=== PATIENT | male | born 1975 | race Caucasian/White ===

== ENCOUNTER 2017-12-31 14:06 | Emergency (ER) | payer MEDICAID ==
[~2017-12-31] VITALS: Ht 182.9 cm; Wt 83.9 kg
[2017-12-31 14:15] VITALS: BP 123/71
[2017-12-31] MEDS ORDERED: cefTRIAXone SOD 1,000 MG VL IM ONE (16:00)
[2017-12-31] MEDS ORDERED: traMADol HCL 50 MG TAB PO ONE (16:00)
== END 2017-12-31 16:21 | disposition home or self-care (01) ==
LOC: ER 14:06
DX: K08.89 Other specified disorders of teeth and supporting structures (principal); J30.9 Allergic rhinitis, unspecified; F17.210 Nicotine dependence, cigarettes, uncomplicated; F12.10 Cannabis abuse, uncomplicated
CPT/HCPCS: 96372; 99283; J0696

== ENCOUNTER 2018-01-05 13:45 | Emergency (ER) | payer OTHER, MEDICAID ==
[~2018-01-05] VITALS: Ht 180.3 cm; Wt 83.9 kg
[2018-01-05 14:45] VITALS: BP 11/69
[2018-01-05] MEDS ORDERED: diphenhdrAMINE HCL 25 MG CAP PO ONE (15:00)
[2018-01-05] MEDS ORDERED: methylPREDNISolone SOD SUCC 125 MG/2 ML VL IM ONE (15:00)
== END 2018-01-05 15:24 | disposition home or self-care (01) ==
LOC: ER 13:45
DX: L03.317 Cellulitis of buttock (principal); K08.89 Other specified disorders of teeth and supporting structures; F17.210 Nicotine dependence, cigarettes, uncomplicated; F12.10 Cannabis abuse, uncomplicated
CPT/HCPCS: 96372; 99283; J2930

== ENCOUNTER 2019-01-02 20:34 | Emergency (ER) | payer MEDICAID, MEDICARE, OTHER ==
[~2019-01-02] VITALS: Ht 180.3 cm; Wt 81.6 kg
[2019-01-02 20:45] VITALS: BP 138/86
[2019-01-02 22:46] LABS: Amphetamine Screen, Urine POSITIVE (NEGATIVE); Barbiturate Scree,Urine NEGATIVE (NEGATIVE); Benzodiazephine Screen, Urine NEGATIVE (NEGATIVE); Cannabinoid Screen, Urine POSITIVE (NEGATIVE); Cocaine Screen, Urine NEGATIVE (NEGATIVE); Opiate Scree,Urine NEGATIVE (NEGATIVE); Phencyclidine Screen, Urine NEGATIVE (NEGATIVE)
== END 2019-01-03 03:50 | disposition left against medical advice (07) ==
LOC: EDBD 20:34 → ER 20:39
DX: F41.9 Anxiety disorder, unspecified (principal); Z53.21 Procedure and treatment not carried out due to patient leaving prior to being seen by health care provider
CPT/HCPCS: 80307

== ENCOUNTER 2020-09-26 17:48 | Emergency (ER) | payer MEDICARE ==
[~2020-09-26] VITALS: Ht 180.3 cm; Wt 102.1 kg
[2020-09-26 23:18] VITALS: BP 128/78
== END 2020-09-26 23:18 | disposition home or self-care (01) ==
LOC: ER 17:48
DX: U07.1 COVID-19 (principal); J12.89 Other viral pneumonia; F17.210 Nicotine dependence, cigarettes, uncomplicated
CPT/HCPCS: 36415; 71045; 87426

== ENCOUNTER 2021-07-18 05:38 | Emergency (ER) | payer MEDICARE ==
[~2021-07-18] VITALS: Ht 182.9 cm; Wt 106.6 kg
[2021-07-18] MEDS ORDERED: IPRATROPIUM BROM 0.5 MG/2.5ML INH SOL NEB ONE (07:45)
[2021-07-18] MEDS ORDERED: methylPREDNISolone SOD SUCC 125 MG/2 ML VL IM ONE (07:45)
[2021-07-18 07:48] VITALS: BP 125/92
== END 2021-07-18 08:16 | disposition home or self-care (01) ==
LOC: ER 05:38
DX: J45.909 Unspecified asthma, uncomplicated (principal); F17.210 Nicotine dependence, cigarettes, uncomplicated; F12.10 Cannabis abuse, uncomplicated
CPT/HCPCS: 71045; 94640; 96372; 99283; J2930; J7644

== ENCOUNTER 2023-09-10 13:16 | Emergency (ER) | payer MEDICAID, MEDICARE, OTHER ==
[~2023-09-10] VITALS: Ht 180.3 cm; Wt 108.5 kg
[2023-09-10 14:24] LABS: Basophils # (auto) 0.1 10 ^3/uL (0-0.2); Eosinophils # (auto) 0.2 10 ^3/uL (0-0.8); Hematocrit 38.7 % (41.0-53.0); Hemoglobin 13.1 g/dL (13.5-17.5); Lymphocytes # (auto) 1.8 10 ^3/uL (0.4-5.4); Mean Corpuscular Volume 105.3 fL (80.0-100.0); Monocytes # (auto) 0.8 10 ^3/uL (0-1.3); Red Cell Distribution Width 13.4 % (11.8-14.3); White Blood Cell 5.9 10^3/uL (4.4-10.8)
[2023-09-10 14:26] LABS: Eosinophils % (auto) 2.7 % (0.0-7.0); Lymphocytes % (auto) 29.6 % (10.0-50.0); Mean Corpuscular Hemoglobin 35.6 pg (28.0-32.0); Mean Corpuscular Hgb Conc. 33.8 g/dL (32.0-36.0); Monocytes % (auto) 13.6 % (0.0-12.0); Neutrophils # (auto) 3.1 10 ^3/uL (1.6-8.6); Neutrophils % (auto) 53.1 % (37.0-80.0); Nucleated Red Blood Cells % 0.1 %; Red Blood Cells 3.68 10^6/uL (4.5-5.90)
[2023-09-10 14:41] LABS: Alanine Aminotransferase 170 U/L (7-40); Albumin 3.7 g/dL (3.2-4.8); Alkaline Phosphatase 85 U/L (46-116); Anion Gap 7 (5-15); Aspartate Aminotransferase 228 U/L (13-40); BUN/Creatinine Ratio 9.1 (10.0-20.0); Bilirubin, Total 1.8 mg/dL (0.2-1.0); Blood Urea Nitrogen 6 mg/dL (9-23); Calcium 9.1 mg/dL (8.5-10.1); Carbon Dioxide 23 mmol/L (20-30); Chloride 107 mmol/L (98-107); Glucose 100 mg/dL (74-106); Potassium 4.2 mmol/L (3.5-5.1); Sodium 137 mmol/L (136-145); Total Protein 7.8 g/dL (5.7-8.2)
[2023-09-10 14:44] LABS: INR 1.3 (0.9-1.15); Prothrombin Time 13.4 sec (9.3-11.8)
[2023-09-10] MEDS ORDERED: ONDANSETRON HCL 4 MG/2 ML VIAL IV ONE (15:15)
[2023-09-10] MEDS ORDERED: ZOFR4T PO (15:38)
[2023-09-10 17:03] VITALS: BP 125/76; PULSE 74; RESP 19; TEMP 98.4; O2SAT 98
== END 2023-09-10 17:13 | disposition home or self-care (01) ==
LOC: ER 13:16
DX: R04.0 Epistaxis (principal); J45.909 Unspecified asthma, uncomplicated; F17.210 Nicotine dependence, cigarettes, uncomplicated; F12.10 Cannabis abuse, uncomplicated
CPT/HCPCS: 30300; 36415; 80053; 85025; 85610; 85730

== ENCOUNTER 2023-09-11 17:19 | Emergency (ER) | payer OTHER ==
[~2023-09-11] VITALS: Ht 180.3 cm; Wt 107.1 kg
[~2023-09-11 17:19] MED LIST: ZOFR4T PO
[2023-09-11 19:04] VITALS: BP 136/86; PULSE 95; RESP 16; TEMP 98.2; O2SAT 98
[2023-09-11] MEDS ORDERED: KETOROLAC TROMETH 30 MG/ML 1ML VIAL IM ONE (19:30)
[2023-09-11] MEDS ORDERED: KETOROLAC TROMETH 30 MG/ML 1ML VIAL ONE (19:42)
== END 2023-09-11 21:06 | disposition home or self-care (01) ==
LOC: ER 17:19
DX: R51.9 Headache, unspecified (principal); J45.909 Unspecified asthma, uncomplicated; F17.210 Nicotine dependence, cigarettes, uncomplicated; F12.10 Cannabis abuse, uncomplicated; Z48.02 Encounter for removal of sutures; Z88.1 Allergy status to other antibiotic agents
CPT/HCPCS: 96372; 99283; J1885

== ENCOUNTER 2023-10-20 09:27 | Emergency (ER) | payer OTHER ==
[~2023-10-20] VITALS: Ht 182.9 cm; Wt 113.6 kg
[2023-10-20] MEDS ORDERED: PANTOPRAZOLE 40 MG/10 ML VIAL INJ IV ONE (09:45)
[2023-10-20] MEDS ORDERED: PROCHLORPERAZINE EDISYLATE 5 MG/ML 2ML VIAL IV ONE (09:45)
[2023-10-20] MEDS ORDERED: SODIUM CHLORIDE 0.9% 1,000 ML IVB ONE (09:45)
[2023-10-20] MEDS ORDERED: MORPHINE SULFATE 4 MG/ML SYR/VIAL IV ONE (09:45)
[2023-10-20 10:17] VITALS: PULSE 116; RESP 19; O2SAT 98
[2023-10-20 10:19] LABS: Basophils # (auto) 0 10 ^3/uL (0-0.2); Basophils % (auto) 0.3 % (0.0-2.0); Eosinophils # (auto) 0 10 ^3/uL (0-0.8); Hemoglobin 8.8 g/dL (13.5-17.5); Lymphocytes # (auto) 2.4 10 ^3/uL (0.4-5.4)
[2023-10-20 10:23] LABS: Lymphocytes % (auto) 15.3 % (10.0-50.0); Mean Corpuscular Hemoglobin 35.5 pg (28.0-32.0); Mean Corpuscular Volume 104.4 fL (80.0-100.0); Monocytes # (auto) 1.2 10 ^3/uL (0-1.3); Monocytes % (auto) 7.9 % (0.0-12.0); Neutrophils % (auto) 76.5 % (37.0-80.0); Red Blood Cells 2.49 10^6/uL (4.5-5.90); Red Cell Distribution Width 14.2 % (11.8-14.3); White Blood Cell 15.6 10^3/uL (4.4-10.8)
[2023-10-20 10:44] LABS: Alanine Aminotransferase 109 U/L (7-40); Albumin 3.4 g/dL (3.2-4.8); Alkaline Phosphatase 50 U/L (46-116); Anion Gap 10 (5-15); Aspartate Aminotransferase 211 U/L (13-40); BUN/Creatinine Ratio 36.9 (10.0-20.0); Blood Urea Nitrogen 38 mg/dL (9-23); Calcium 9.2 mg/dL (8.5-10.1); Carbon Dioxide 29 mmol/L (20-30); Chloride 97 mmol/L (98-107); Glucose 142 mg/dL (74-106); Potassium 3.2 mmol/L (3.5-5.1); Sodium 136 mmol/L (136-145)
[2023-10-20 10:45] LABS: Bilirubin, Total 2.8 mg/dL (0.2-1.0); Total Protein 6.8 g/dL (5.7-8.2)
[2023-10-20 11:09] LABS: Urine Epithelial Cast None Seen /hpf (<5)
[2023-10-20 11:22] LABS: Urine Bacteria NONE SEEN /hpf (None Seen); Urine Blood Negative /uL (Negative); Urine Clarity Clear (Clear); Urine Color Yellow (Yellow); Urine Hyaline Cast FEW /lpf (0 - 2); Urine Mucus FEW (None Seen); Urine Protein, UAD TRACE (Negative); Urine Specific Gravity 1.024 (1.001-1.035); Urine Urobilinogen Normal (Negative); Urine WBC 1 /hpf (0 - 3); Urine pH 5.5 (5.0-8.0)
[2023-10-20 11:39] LABS: Amphetamine Screen, Urine Neg (NEGATIVE); Barbiturate Scree,Urine Neg (NEGATIVE); Benzodiazephine Screen, Urine Neg (NEGATIVE); Cannabinoid Screen, Urine Pos (NEGATIVE); Cocaine Screen, Urine Neg (NEGATIVE); Opiate Scree,Urine Pos (NEGATIVE); Phencyclidine Screen, Urine Neg (NEGATIVE)
[2023-10-20 13:30] LABS: Lipase 68 U/L (12-53)
[2023-10-20] MEDS ORDERED: POTASSIUM CHL 20MEQ/100ML 100 ML IV ONE (14:00)
[2023-10-20 16:06] VITALS: BP 109/70; PULSE 117; RESP 17; TEMP 98.5; O2SAT 96
== END 2023-10-20 12:04 | disposition short-term general hospital (02) ==
LOC: EDBD 09:27 → ER 09:27
DX: E86.0 Dehydration (principal); D64.89 Other specified anemias; E87.6 Hypokalemia; R11.2 Nausea with vomiting, unspecified; J45.909 Unspecified asthma, uncomplicated; F17.210 Nicotine dependence, cigarettes, uncomplicated; Z90.89 Acquired absence of other organs; Z79.899 Other long term (current) drug therapy; Z88.8 Allergy status to other drugs, medicaments and biological substances
CPT/HCPCS: 36415; 74176; 80053; 80307; 81001; 83690; 85025; 96361; 96365; 96366; 96375; 99285; C9113; J0780; J2270; J3480; J7030

== ENCOUNTER 2023-10-25 14:18 | Emergency (ER) | payer OTHER ==
[~2023-10-25] VITALS: Ht 182.9 cm; Wt 100.0 kg
[2023-10-25 15:20] LABS: Hematocrit 28.4 % (41.0-53.0); Hemoglobin 9.2 g/dL (13.5-17.5); Mean Corpuscular Hemoglobin 30.6 pg (28.0-32.0); Mean Corpuscular Hgb Conc. 32.3 g/dL (32.0-36.0); Mean Corpuscular Volume 94.8 fL (80.0-100.0); Red Cell Distribution Width 20.4 % (11.8-14.3); White Blood Cell 13.5 10^3/uL (4.4-10.8)
[2023-10-25 15:24] LABS: Band Neutrophils % (manual) 0; Basophils % (manual) 0 (0.0-2.0); Blast Cells 0; Metamyelocytes % 0; Myelocytes % 0; Promyelocytes % 0; Reactive Lymphocytes 0
[2023-10-25 15:26] LABS: Chloride 102 mmol/L (98-107); Potassium 3.6 mmol/L (3.5-5.1); Sodium 132 mmol/L (136-145)
[2023-10-25 15:27] LABS: Anion Gap 5 (5-15); Calcium 7.5 mg/dL (8.5-10.1); Carbon Dioxide 25 mmol/L (20-30)
[2023-10-25 15:32] LABS: BUN/Creatinine Ratio 18.1 (10.0-20.0); Blood Urea Nitrogen 15 mg/dL (9-23); Glucose 116 mg/dL (74-106)
[2023-10-25 16:17] LABS: Eosinophils % (manual) 2 (0-7); Lymphocytes % (manual) 10 (10.0-50.0); Monocytes % (manual) 16 (0-12); Platelet Estimate Adequate
[2023-10-25] MEDS ORDERED: chlordiazePOXIDE HCL 25 MG CAP PO ONE (17:00)
[2023-10-25 17:43] VITALS: PULSE 106; RESP 16; O2SAT 96
[2023-10-25 17:48] LABS: Alanine Aminotransferase 107 U/L (7-40); Albumin 2.9 g/dL (3.2-4.8); Alkaline Phosphatase 113 U/L (46-116); Anion Gap 5 (5-15); Aspartate Aminotransferase 186 U/L (13-40); BUN/Creatinine Ratio 19.5 (10.0-20.0); Bilirubin, Total 4.6 mg/dL (0.2-1.0); Blood Alcohol < 3.0 mg/dL (<10); Blood Urea Nitrogen 15 mg/dL (9-23); Calcium 7.5 mg/dL (8.5-10.1); Carbon Dioxide 24 mmol/L (20-30); Chloride 102 mmol/L (98-107); Glucose 115 mg/dL (74-106); Potassium 3.5 mmol/L (3.5-5.1); Sodium 131 mmol/L (136-145)
[2023-10-25 17:49] LABS: Total Protein 5.6 g/dL (5.7-8.2)
[2023-10-25 19:30] VITALS: PULSE 90; RESP 20; O2SAT 99
[2023-10-25] MEDS ORDERED: ONDANSETRON HCL 4 MG/2 ML VIAL IV ONE (20:00)
[2023-10-25] MEDS ORDERED: MORPHINE SULFATE 4 MG/ML SYR/VIAL IV ONE (20:00)
[2023-10-25] MEDS ORDERED: ALBUMIN 5% 250 ML IV ONE (22:00)
[2023-10-25] MEDS ORDERED: LORazepam 2MG/ML-1ML VIAL IM ONE (22:00)
[2023-10-25 22:22] LABS: INR 1.45 (0.9-1.15); Prothrombin Time 14.9 sec (9.3-11.8)
[2023-10-26 01:17] VITALS: BP 134/65; PULSE 92; RESP 12; TEMP 98.9; O2SAT 94
== END 2023-10-26 21:54 | disposition short-term general hospital (02) ==
LOC: ER 14:18
DX: F10.139 Alcohol abuse with withdrawal, unspecified (principal); J45.909 Unspecified asthma, uncomplicated; F17.210 Nicotine dependence, cigarettes, uncomplicated; Z90.89 Acquired absence of other organs; Z79.899 Other long term (current) drug therapy; Z88.8 Allergy status to other drugs, medicaments and biological substances; Y90.0 Blood alcohol level of less than 20 mg/100 ml
CPT/HCPCS: 36415; 74176; 80048; 80053; 80320; 85007; 85027; 85610; 93005; 96365; 96366; 96375; 99285; J2060; J2270; J2405; P9045

== ENCOUNTER 2023-11-07 07:53 | Inpatient (IN) | payer OTHER ==
[~2023-11-07] VITALS: Ht 180.3 cm; Wt 73.5 kg
[2023-11-07 08:14] VITALS: PULSE 106; RESP 19; O2SAT 97
[2023-11-07 08:49] LABS: Basophils # (auto) 0 10 ^3/uL (0-0.2); Eosinophils # (auto) 0.3 10 ^3/uL (0-0.8); Hematocrit 24.5 % (41.0-53.0); Hemoglobin 7.8 g/dL (13.5-17.5); Mean Corpuscular Hgb Conc. 31.9 g/dL (32.0-36.0); Neutrophils # (auto) 3.3 10 ^3/uL (1.6-8.6); Red Blood Cells 2.68 10^6/uL (4.5-5.90)
[2023-11-07 08:51] LABS: Basophils % (auto) 0.4 % (0.0-2.0); Eosinophils % (auto) 5.6 % (0.0-7.0); Lymphocytes # (auto) 1.7 10 ^3/uL (0.4-5.4); Mean Corpuscular Hemoglobin 29.2 pg (28.0-32.0); Mean Corpuscular Volume 91.4 fL (80.0-100.0); Monocytes # (auto) 0.7 10 ^3/uL (0-1.3); Monocytes % (auto) 12.1 % (0.0-12.0); Neutrophils % (auto) 53.9 % (37.0-80.0); Nucleated Red Blood Cells % 0.1 %; Red Cell Distribution Width 19.4 % (11.8-14.3); White Blood Cell 6.1 10^3/uL (4.4-10.8)
[2023-11-07 09:01] LABS: Alanine Aminotransferase 66 U/L (7-40); Albumin 2.7 g/dL (3.2-4.8); Alkaline Phosphatase 81 U/L (46-116); Anion Gap 5 (5-15); Aspartate Aminotransferase 120 U/L (13-40); Bilirubin, Total 2.6 mg/dL (0.2-1.0); Calcium 8.1 mg/dL (8.5-10.1); Carbon Dioxide 25 mmol/L (20-30); Chloride 105 mmol/L (98-107); Glucose 102 mg/dL (74-106); Potassium 3.6 mmol/L (3.5-5.1); Sodium 135 mmol/L (136-145); Total Protein 6.8 g/dL (5.7-8.2)
[2023-11-07 09:05] LABS: BUN/Creatinine Ratio 5.8 (10.0-20.0); Blood Urea Nitrogen < 5 mg/dL (9-23)
[2023-11-07] MEDS: FUROSEMIDE 40 MG/4 ML VIAL IV ONE (09:21)
[2023-11-07] MEDS: cefTRIAXone 1GM/50ML D5W 50 ML IV ONE (09:33)
[2023-11-07] MEDS: ONDANSETRON HCL 4 MG/2 ML VIAL IV ONE (09:34)
[2023-11-07] MEDS: MORPHINE SULFATE INJ 2 MG/ml SYRG IV ONE (09:34)
[2023-11-07 10:14] LABS: Lactic Acid w/Reflex 2.3 mmol/L (0.4-2.0)
[2023-11-07 10:21] LABS: Urine Bacteria NONE SEEN /hpf (None Seen); Urine Blood Negative /uL (Negative); Urine Clarity Clear (Clear); Urine Color Yellow (Yellow); Urine Protein, UAD Negative (Negative); Urine Specific Gravity 1.007 (1.001-1.035); Urine Urobilinogen Normal (Negative); Urine WBC 1 /hpf (0 - 3); Urine pH 6.5 (5.0-8.0)
[2023-11-07 10:30] LABS: Amphetamine Screen, Urine Neg (NEGATIVE); Barbiturate Scree,Urine Neg (NEGATIVE); Benzodiazephine Screen, Urine Pos (NEGATIVE); Cannabinoid Screen, Urine Pos (NEGATIVE); Cocaine Screen, Urine Neg (NEGATIVE); Opiate Scree,Urine Neg (NEGATIVE); Phencyclidine Screen, Urine Neg (NEGATIVE)
[2023-11-07] MEDS: CLINDAMYCIN 900MG IV 50 ML IV ONE (10:46)
[2023-11-07 12:31] LABS: Triglycerides 80 mg/dL (< 150)
[2023-11-07 12:32] LABS: LDL Cholesterol 52 mg/dL (< 100)
[2023-11-07 12:33] LABS: Cholesterol 87 mg/dL (< 200); HDL Cholesterol 14 mg/dL (40-59)
[2023-11-07 13:03] VITALS: BP 107/57; PULSE 111; RESP 19; TEMP 98.6; O2SAT 94
[2023-11-07 13:18] LABS: Erythrocyte Sedimentation Rate 63 mm/hr (0-20)
[2023-11-07] MEDS: CLINDAMYCIN 900MG IV 50 ML IV SCH (14:00)
[2023-11-07] MEDS: NICOTINE 14 MG/24HR TOPICAL PATCH TD SCH (16:26)
[2023-11-07 17:47] VITALS: PULSE 110; RESP 18; O2SAT 97
[2023-11-07 19:45] VITALS: O2SAT 96
[2023-11-07] MEDS: ACETAMINOPHEN 325 MG TAB PO PRN (20:24)
[2023-11-07 22:00] VITALS: BP 115/70; PULSE 116; RESP 19; TEMP 98.3; O2SAT 95
[2023-11-08] VITALS (9 sets, daily range): BP systolic 96–129; BP diastolic 55–71; PULSE 101–106; RESP 16–20; TEMP 98.2–98.7; O2SAT 94–97
[2023-11-08 05:56] LABS: Basophils # (auto) 0.1 10 ^3/uL (0-0.2); Eosinophils # (auto) 0.4 10 ^3/uL (0-0.8); Nucleated Red Blood Cells % 0.1 %
[2023-11-08 05:58] LABS: Basophils % (auto) 1.8 % (0.0-2.0); Eosinophils % (auto) 5.4 % (0.0-7.0); Hematocrit 23.6 % (41.0-53.0); Hemoglobin 7.6 g/dL (13.5-17.5); Lymphocytes # (auto) 1.9 10 ^3/uL (0.4-5.4); Lymphocytes % (auto) 29.5 % (10.0-50.0); Mean Corpuscular Hemoglobin 29.5 pg (28.0-32.0); Mean Corpuscular Hgb Conc. 32.2 g/dL (32.0-36.0); Mean Corpuscular Volume 91.4 fL (80.0-100.0); Monocytes # (auto) 0.7 10 ^3/uL (0-1.3); Monocytes % (auto) 10.5 % (0.0-12.0); Neutrophils # (auto) 3.4 10 ^3/uL (1.6-8.6); Neutrophils % (auto) 52.8 % (37.0-80.0); Red Blood Cells 2.59 10^6/uL (4.5-5.90); Red Cell Distribution Width 19.8 % (11.8-14.3); White Blood Cell 6.5 10^3/uL (4.4-10.8)
[2023-11-08 06:02] LABS: Alanine Aminotransferase 53 U/L (7-40); Albumin 2.6 g/dL (3.2-4.8); Alkaline Phosphatase 75 U/L (46-116); Anion Gap 6 (5-15); Aspartate Aminotransferase 109 U/L (13-40); BUN/Creatinine Ratio 7.3 (10.0-20.0); Blood Urea Nitrogen 7 mg/dL (9-23); Calcium 7.9 mg/dL (8.7-10.4); Carbon Dioxide 26 mmol/L (20-30); Chloride 105 mmol/L (98-107); Glucose 102 mg/dL (74-106); Potassium 3.6 mmol/L (3.5-5.1); Sodium 137 mmol/L (136-145)
[2023-11-08 06:03] LABS: Bilirubin, Total 1.9 mg/dL (0.2-1.0); Total Protein 6.7 g/dL (5.7-8.2)
[2023-11-08] MEDS: cefTRIAXone 1GM/50ML D5W 50 ML IV SCH (08:40)
[2023-11-08] MEDS ORDERED: NICOTINE 14 MG/24HR TOPICAL PATCH TD SCH (10:00)
[2023-11-08] MEDS: FUROSEMIDE 20 MG/2 ML VIAL IV SCH (10:43)
[2023-11-08] MEDS: ENOXAPARIN SOD 40 MG/0.4 ML SYRINGE SC SCH (10:43)
[2023-11-08] MEDS: FOLIC ACID 1 MG, MULTIPLE VITAMIN 10 ML, MAGNESIUM SULF SDV 50% 8 MEQ, THIAMINE INJ 100... INJ SCH (18:00)
[2023-11-09] VITALS (12 sets, daily range): BP systolic 90–111; BP diastolic 50–70; PULSE 96–110; RESP 16–20; TEMP 98.2–99.4; O2SAT 94–100
[2023-11-09 06:01] LABS: Basophils # (auto) 0.1 10 ^3/uL (0-0.2); Eosinophils # (auto) 0.3 10 ^3/uL (0-0.8); Lymphocytes # (auto) 1.6 10 ^3/uL (0.4-5.4); Monocytes # (auto) 0.6 10 ^3/uL (0-1.3); Neutrophils # (auto) 2.3 10 ^3/uL (1.6-8.6)
[2023-11-09 06:03] LABS: Basophils % (auto) 1.9 % (0.0-2.0); Eosinophils % (auto) 5.6 % (0.0-7.0); Hematocrit 21.4 % (41.0-53.0); Lymphocytes % (auto) 32.4 % (10.0-50.0); Mean Corpuscular Hemoglobin 29.5 pg (28.0-32.0); Mean Corpuscular Hgb Conc. 32.4 g/dL (32.0-36.0); Neutrophils % (auto) 47.1 % (37.0-80.0); Red Blood Cells 2.35 10^6/uL (4.5-5.90); Red Cell Distribution Width 19.3 % (11.8-14.3); White Blood Cell 4.8 10^3/uL (4.4-10.8)
[2023-11-09 06:07] LABS: Anion Gap 6 (5-15); Carbon Dioxide 26 mmol/L (20-30); Chloride 106 mmol/L (98-107); Potassium 3.1 mmol/L (3.5-5.1); Sodium 138 mmol/L (136-145)
[2023-11-09 06:08] LABS: Calcium 7.6 mg/dL (8.7-10.4)
[2023-11-09 06:13] LABS: BUN/Creatinine Ratio 9.5 (10.0-20.0); Blood Urea Nitrogen 8 mg/dL (9-23); Glucose 98 mg/dL (74-106)
[2023-11-09 07:08] LABS: Hemoglobin 6.9 g/dL (13.5-17.5)
[2023-11-09 09:16] LABS: Hepatitis B Surface Antigen Negative (Negative)
[2023-11-09 09:51] LABS: Hepatitis C Antibody Positive (Negative)
[2023-11-09] MEDS ORDERED: FURO40TA4 PO (14:09)
[2023-11-09] MEDS ORDERED: POTA10TA51 PO (14:09)
[2023-11-09] MEDS ORDERED: ALBU108A5 INH (14:09)
[2023-11-09] MEDS ORDERED: PANT40TA2 PO (14:09)
[2023-11-09] MEDS ORDERED: POTA-220 PO (14:09)
[2023-11-09] MEDS: ALBUTEROL SULF 2.5 MG/0.5ML(0.5%) NEB SOLN NEB PRN (14:45)
[2023-11-09] MEDS: FAMOTIDINE (10MG/ML) 2ML VL IV ONE (23:18)
[2023-11-10 05:11] VITALS: BP 105/58; PULSE 96; RESP 17; TEMP 98; O2SAT 94
[2023-11-10 09:14] VITALS: BP 100/65; PULSE 81; RESP 14; TEMP 98.3; O2SAT 93
[2023-11-10 10:42] VITALS: BP 100/65; PULSE 81; RESP 14; O2SAT 93
[2023-11-10 10:48] VITALS: O2SAT 93
[2023-11-10 10:53] LABS: Basophils # (auto) 0.1 10 ^3/uL (0-0.2); Basophils % (auto) 1.5 % (0.0-2.0); Eosinophils # (auto) 0.5 10 ^3/uL (0-0.8); Hematocrit 26.4 % (41.0-53.0); Hemoglobin 8.6 g/dL (13.5-17.5); Lymphocytes # (auto) 1.7 10 ^3/uL (0.4-5.4); Lymphocytes % (auto) 33.4 % (10.0-50.0); Mean Corpuscular Hemoglobin 29.3 pg (28.0-32.0); Mean Corpuscular Hgb Conc. 32.5 g/dL (32.0-36.0); Mean Corpuscular Volume 90.2 fL (80.0-100.0); Monocytes # (auto) 0.7 10 ^3/uL (0-1.3); Monocytes % (auto) 13.5 % (0.0-12.0); Neutrophils # (auto) 2.2 10 ^3/uL (1.6-8.6); Neutrophils % (auto) 42.6 % (37.0-80.0); Nucleated Red Blood Cells % 0.1 %; Red Blood Cells 2.92 10^6/uL (4.5-5.90); Red Cell Distribution Width 19.2 % (11.8-14.3); White Blood Cell 5.1 10^3/uL (4.4-10.8)
[2023-11-10 11:16] LABS: Alanine Aminotransferase 45 U/L (7-40); Albumin 2.5 g/dL (3.2-4.8); Alkaline Phosphatase 64 U/L (46-116); Anion Gap 4 (5-15); Aspartate Aminotransferase 89 U/L (13-40); BUN/Creatinine Ratio 9.4 (10.0-20.0); Bilirubin, Total 2.1 mg/dL (0.2-1.0); Blood Urea Nitrogen 8 mg/dL (9-23); Calcium 7.8 mg/dL (8.5-10.1); Carbon Dioxide 29 mmol/L (20-30); Chloride 105 mmol/L (98-107); Glucose 101 mg/dL (74-106); Sodium 138 mmol/L (136-145); Total Protein 6.2 g/dL (5.7-8.2)
[2023-11-10 12:34] VITALS: BP 93/51; PULSE 90; RESP 16; TEMP 98.8; O2SAT 92
[2023-11-10] MEDS: PANTOPRAZOLE 40 MG/10 ML VIAL INJ IV SCH (13:11)
[2023-11-10 14:01] LABS: COVID19 ANTIGEN SOFIA FIA NEGATIVE (NEGATIVE)
[2023-11-10 16:30] VITALS: BP 98/56; PULSE 91; RESP 16; TEMP 99; O2SAT 95
== END 2023-11-10 18:20 | disposition short-term general hospital (02) | DRG 602 ==
LOC: ER 07:53 → OVERFLOW 11:34 → CENTRAL 17:43
PROVIDERS: ADMIT Nurse Practitioner Family; ATTEND Family Medicine
PROC: 30233N1 Transfusion of Nonautologous Red Blood Cells into Peripheral Vein, Percutaneous Approach (ICD-10-PCS; principal; 2023-11-09)
DX: L03.115 Cellulitis of right lower limb (principal); I50.33 Acute on chronic diastolic (congestive) heart failure; R18.8 Other ascites; I85.00 Esophageal varices without bleeding; L03.116 Cellulitis of left lower limb; R04.0 Epistaxis; E66.01 Morbid (severe) obesity due to excess calories; F10.10 Alcohol abuse, uncomplicated; R74.01 Elevation of levels of liver transaminase levels; D63.8 Anemia in other chronic diseases classified elsewhere; J45.909 Unspecified asthma, uncomplicated; K70.10 Alcoholic hepatitis without ascites; Y90.9 Presence of alcohol in blood, level not specified; D50.0 Iron deficiency anemia secondary to blood loss (chronic); F17.210 Nicotine dependence, cigarettes, uncomplicated; B19.20 Unspecified viral hepatitis C without hepatic coma; K74.60 Unspecified cirrhosis of liver; E03.9 Hypothyroidism, unspecified; Z20.822 Contact with and (suspected) exposure to COVID-19; Z88.1 Allergy status to other antibiotic agents; Z71.6 Tobacco abuse counseling; Z68.22 Body mass index [BMI] 22.0-22.9, adult
CPT/HCPCS: 36415; 71045; 76705; 80048; 80053; 80061; 80307; 80320; 81001; 82140; 82270; 83036; 83605; 83880; 84443; 85025; 85652; 86141; 86803; 86850; 86900; 86901; 86920; 87040; 87340; 87426; 93306; 93970; 94640; 96365; 96375; 97110; 97116; 97163; 97530; C9113; G0378; J2405; J3490

== ENCOUNTER 2023-11-24 09:42 | Emergency (ER) | payer OTHER ==
[~2023-11-24] VITALS: Ht 170.2 cm; Wt 110.9 kg
[~2023-11-24 09:42] MED LIST changes: +ALBU108A5 INH; +FURO40TA4 PO; +PANT40TA2 PO; +POTA-220 PO
[2023-11-24 11:03] LABS: Basophils # (auto) 0.1 10 ^3/uL (0-0.2); Basophils % (auto) 1.2 % (0.0-2.0); Eosinophils # (auto) 0.2 10 ^3/uL (0-0.8); Eosinophils % (auto) 3.7 % (0.0-7.0); Hematocrit 26.1 % (41.0-53.0); Hemoglobin 8.2 g/dL (13.5-17.5); Lymphocytes # (auto) 1.6 10 ^3/uL (0.4-5.4); Lymphocytes % (auto) 27.4 % (10.0-50.0); Mean Corpuscular Hgb Conc. 31.4 g/dL (32.0-36.0); Monocytes # (auto) 0.7 10 ^3/uL (0-1.3); Monocytes % (auto) 12.2 % (0.0-12.0); Neutrophils # (auto) 3.2 10 ^3/uL (1.6-8.6); Neutrophils % (auto) 55.5 % (37.0-80.0); Nucleated Red Blood Cells % 0.1 %; Red Blood Cells 3.03 10^6/uL (4.5-5.90); Red Cell Distribution Width 18.8 % (11.8-14.3); White Blood Cell 5.7 10^3/uL (4.4-10.8)
[2023-11-24 11:12] LABS: Alanine Aminotransferase 28 U/L (7-40); Alkaline Phosphatase 61 U/L (46-116); Anion Gap 5 (5-15); Aspartate Aminotransferase 66 U/L (13-40); BUN/Creatinine Ratio 5.7 (10.0-20.0); Blood Urea Nitrogen 6 mg/dL (9-23); Calcium 8.3 mg/dL (8.7-10.4); Carbon Dioxide 28 mmol/L (20-30); Chloride 107 mmol/L (98-107); Glucose 97 mg/dL (74-106); Lipase 29 U/L (12-53); Potassium 3.9 mmol/L (3.5-5.1); Sodium 140 mmol/L (136-145)
[2023-11-24 11:13] LABS: Albumin 2.8 g/dL (3.2-4.8); Bilirubin, Total 1.6 mg/dL (0.2-1.0)
[2023-11-24 11:16] LABS: INR 1.49 (0.9-1.15); Partial Thromboplastin Time 44.3 SEC (24.5-34.5); Prothrombin Time 15.2 sec (9.3-11.8)
[2023-11-24 14:31] LABS: Urine Bacteria NONE SEEN /hpf (None Seen); Urine Blood Negative /uL (Negative); Urine Clarity Clear (Clear); Urine Color Colorless (Yellow); Urine Protein, UAD Negative (Negative); Urine Specific Gravity 1.007 (1.001-1.035); Urine Urobilinogen Normal (Negative); Urine WBC 2 /hpf (0 - 3); Urine pH 6.5 (5.0-8.0)
[2023-11-24 15:18] LABS: COVID19 ANTIGEN SOFIA FIA NEGATIVE (NEGATIVE)
[2023-11-24 18:19] VITALS: RESP 18; O2SAT 98
[2023-11-24 18:25] VITALS: BP 115/80; PULSE 95; RESP 18; TEMP 98.4; O2SAT 98
== END 2023-11-24 18:50 | disposition home or self-care (01) ==
LOC: ER 09:42
DX: G93.40 Encephalopathy, unspecified (principal); R18.8 Other ascites; R06.02 Shortness of breath; R41.82 Altered mental status, unspecified; J45.909 Unspecified asthma, uncomplicated; I50.9 Heart failure, unspecified; Z90.89 Acquired absence of other organs; F17.210 Nicotine dependence, cigarettes, uncomplicated; Z79.899 Other long term (current) drug therapy; Z88.8 Allergy status to other drugs, medicaments and biological substances; Z20.822 Contact with and (suspected) exposure to COVID-19
CPT/HCPCS: 36415; 76705; 80053; 81001; 82140; 83690; 85025; 85610; 85730; 87426